=== PATIENT | male | born 1980 | race Caucasian/White ===

== ENCOUNTER 2017-05-25 11:51 | Emergency (ER) | payer BC, OTHER | END 2017-05-25 13:12 | disposition home or self-care (01) | LOC: D.ER 11:51 | DX: F10.10 Alcohol abuse, uncomplicated (principal); F10.129 Alcohol abuse with intoxication, unspecified; I10 Essential (primary) hypertension; F42.9 Obsessive-compulsive disorder, unspecified ==

== ENCOUNTER 2020-10-25 19:19 | Inpatient (IN) | payer BC ==
[~2020-10-25] VITALS: Ht 180.3 cm; Wt 81.8 kg
[2020-10-25 19:21] VITALS: Ht 180.3 cm; Wt 81.8 kg
[2020-10-25] MEDS ORDERED: ATIVAN1 MG PO (19:23)
[2020-10-25] MEDS ORDERED: LIBRIUM25 MG PO (19:24)
--- NOTE | 2020-10-25 19:30 | NUR ---
UNABLE TO ASSESS [place] SUICIDE RISK SCALE AT THIS TIME.
[2020-10-25 19:36] LABS: BASOPHILS 0.2 % (0-2); EOSINOPHILS 3.1 % (0-7); HEMATOCRIT 42.7 % (42.0-54.0); HEMOGLOBIN 14.6 g/dL (13.5-17.5); IMMATURE GRANULOCYTES 0.2 % (0-5); LYMPHOCYTE ABS# 1.56 10x3/uL (1.32-3.57); LYMPHOCYTES 24.1 % (15-50); MCH 32.3 pg (26.0-34.0); MCHC 34.2 g/dL (31.0-37.0); MCV 94.5 fL (80.0-100.0); MEAN PLATELET VOLUME 10.6 fL (7.4-10.4); MONOCYTES 4.8 % (2-11); NEUTROPHIL ABS# 4.37 10x3/uL (1.78-5.38); NEUTROPHILS 67.6 % (40-80); RBC 4.52 10x6/uL (4.20-6.10); WBC 6.5 10x3/uL (4.8-10.8)
[2020-10-25 19:39] LABS: PLATELET COUNT 55 10x3/uL (130-400)
[2020-10-25 19:51] LABS: CALC OSMOLALITY 289 mosm/kg (275-300); CALCIUM 8.6 mg/dL (8.5-10.1); CARBON DIOXIDE 26.2 mmol/L (21.0-32.0); CHLORIDE - SERUM 110 mmol/L (98-107); CREATININE - SERUM 0.9 mg/dL (0.6-1.3); GLUCOSE 84 mg/dL (74-106); POTASSIUM - SERUM 3.5 mmol/L (3.5-5.1); SODIUM 146 mmol/L (136-145); UREA NITROGEN 13 mg/dL (7-18); eGFR NON AFRICAN AMERICAN > 90 mL/min (90-120)
[2020-10-25 19:59] LABS: ACETAMINOPHEN 4.8 ug/mL (10.0-30.0); ALBUMIN 3.3 g/dL (3.4-5.0); ALKALINE PHOSPHATASE 105 U/L (30-120); ALT (SGPT) 73 U/L (10-68); BILIRUBIN - TOTAL 0.74 mg/dL (0.2-1.3); MAGNESIUM - SERUM 1.8 mg/dL (1.8-2.4); PROTEIN - SERUM 6.6 g/dL (6.4-8.2)
[2020-10-25 20:08] LABS: BILIRUBIN NEGATIVE (NEGATIVE); KETONE NEGATIVE (NEGATIVE); NITRITE NEGATIVE (NEGATIVE); UROBILINOGEN NORMAL mg/dL (< 2)
[2020-10-25 20:11] LABS: PLATELET ESTIMATE DECREASED
[2020-10-25 20:23] LABS: UDS - AMPHET POSITIVE QUAL (NEGATIVE); UDS - BARB NEGATIVE QUAL (NEGATIVE); UDS - BENZO POSITIVE QUAL (NEGATIVE); UDS - COCAINE NEGATIVE QUAL (NEGATIVE); UDS - OPIATE NEGATIVE QUAL (NEGATIVE); UDS - PCP NEGATIVE QUAL (NEGATIVE); UDS - THC NEGATIVE QUAL (NEGATIVE)
--- NOTE | 2020-10-26 04:20 | NUR ---
ASSUMED CARE OF PT AT THIS TIME. RESTING IN POSITION OF COMFORT ON RIGHT SIDE. WARM BLANKETS PROVIDED FOR COMFORT. REMAINS ON RETIREMENT PLAN COUNSELOR.
[2020-10-26 05:45] VITALS: BP 110/78
[2020-10-26 05:47] LABS: BASOPHILS 0.2 % (0-2); EOSINOPHILS 2.9 % (0-7); HEMATOCRIT 41.3 % (42.0-54.0); IMMATURE GRANULOCYTES 0.2 % (0-5); LYMPHOCYTE ABS# 1.57 10x3/uL (1.32-3.57); LYMPHOCYTES 25.4 % (15-50); MCH 32.3 pg (26.0-34.0); MCHC 33.9 g/dL (31.0-37.0); MCV 95.2 fL (80.0-100.0); MEAN PLATELET VOLUME 10.5 fL (7.4-10.4); MONOCYTES 6.3 % (2-11); NEUTROPHIL ABS# 4.03 10x3/uL (1.78-5.38); PLATELET COUNT 59 10x3/uL (130-400); RBC 4.34 10x6/uL (4.20-6.10); RDW 15.1 % (11.5-14.5); WBC 6.2 10x3/uL (4.8-10.8)
[2020-10-26 05:50] LABS: PLATELET ESTIMATE DECREASED
[2020-10-26 06:12] LABS: CALC OSMOLALITY 278 mosm/kg (275-300); CALCIUM 7.9 mg/dL (8.5-10.1); CARBON DIOXIDE 23.7 mmol/L (21.0-32.0); CHLORIDE - SERUM 107 mmol/L (98-107); CREATININE - SERUM 0.9 mg/dL (0.6-1.3); GLUCOSE 81 mg/dL (74-106); MAGNESIUM - SERUM 1.8 mg/dL (1.8-2.4); PHOSPHOROUS 4.1 mg/dL (2.5-4.9); POTASSIUM - SERUM 3.4 mmol/L (3.5-5.1); SODIUM 141 mmol/L (136-145); UREA NITROGEN 11 mg/dL (7-18); eGFR NON AFRICAN AMERICAN > 90 mL/min (90-120)
--- NOTE | 2020-10-26 06:35 | NUR ---
SPOKE WITH PT MOTHER. UPDATED HER ON PLAN OF CARE. [phone]
[2020-10-26 06:45] VITALS: BP 111/75
--- NOTE | 2020-10-26 08:07 | NUR ---
PT PROVIDED MEAL TRAY.
--- NOTE | 2020-10-26 08:35 | NUR ---
SPOKE WITH PATIENTS MOTHER REGAURDING PATIENTS WEI AND ARPIT. ADVISED MOTHER THEY WERE NOT WITH PATIENT IN HOSPITAL. MOTHER ALSO STATES PATIENT ADMITTED TO HER VIA PHONE THAT HE DID NOT OD ON HIS MEDS THAT HE "FLUSHED" THEM.
[2020-10-26 17:37] LABS: SARS-CoV-2 ANTIGEN NEGATIVE- SARS-COV-2 (NEGATIVE)
== END 2020-10-26 22:23 | disposition short-term general hospital (02) | DRG 917 ==
LOC: D.ER 19:19 → D.EDHOLD 20:48
PROVIDERS: Family Medicine; ADMIT Family Medicine; ATTEND Family Medicine
DX: T42.4X2A Poisoning by benzodiazepines, intentional self-harm, initial encounter (principal); G93.41 Metabolic encephalopathy; F10.239 Alcohol dependence with withdrawal, unspecified; F33.2 Major depressive disorder, recurrent severe without psychotic features; Y90.8 Blood alcohol level of 240 mg/100 ml or more; F10.229 Alcohol dependence with intoxication, unspecified